=== PATIENT | female | born 1985 | race Asian ===

== ENCOUNTER → 2016-06-10 | Outpatient (CLI) | payer BC ==
[~2016-06-10] MED LIST: IBUP-232 PO; PREN0.01 PO; SENN1TAB PO
== END ==
LOC: HPND 09:24
PROVIDERS: ATTEND Obstetrics & Gynecology
DX: O36.5930 Maternal care for other known or suspected poor fetal growth, third trimester, not applicable or unspecified (principal)
CPT/HCPCS: 76816

== ENCOUNTER 2016-07-17 10:08 | Inpatient (IN) | payer BC ==
[2016-07-17] VITALS (14 sets, daily range): BP systolic 98–109; BP diastolic 61–75; PULSE 66–92; RESP 16–20; TEMP 97.8–98.8
[~2016-07-17 10:08] MED LIST changes: -IBUP-232 PO; -SENN1TAB PO
[2016-07-17] MEDS: LACTATED RINGER'S 1000 ML INJ 1,000 ML IV SCH (10:55)
[2016-07-17] MEDS ORDERED: LACTATED RINGER'S 1000 ML INJ 1,000 ML IV PRN (10:55)
[2016-07-17] MEDS ORDERED: LIDOCAINE HCL 1% 50 ML VIAL I-DERMAL PRN (11:00)
[2016-07-17] MEDS ORDERED: OXYTOCIN 30 UNITS-500ML PREMIX 500 ML IV ONE (11:00)
[2016-07-17] MEDS ORDERED: PENICILLIN G POTASSIUM INJ 5,000,000 UNITS in SODIUM CHLORIDE 0.9% INJ 100 ML IV ONE (11:00)
[2016-07-17] MEDS ORDERED: SODIUM CHLORID 0.9% 500 ML INJ 500 ML IV PRN (11:00)
[2016-07-17] MEDS ORDERED: MINERAL OIL 10 ML VIAL TOPICAL PRN (11:00)
[2016-07-17] MEDS ORDERED: LIDOCAINE HCL 1% 50 ML VIAL INFIL PRN (11:00)
[2016-07-17] MEDS ORDERED: CITRIC ACID-SODIUM CITRATE LIQ 30 ML UDC PO SCH (11:00)
--- NOTE | 2016-07-17 11:09 | PD ---
HPI Chief Complaint Labor, ruptured membranes Date Seen: Jul 17, 2016 Time Seen: 10:45 Travel History International Travel<30 Days: No Contact w/Intl Traveler<30Days: No Known Affected Area: No History of Present Illness HPI 30-year-old 2 para 1 at 40-6/7 weeks gestation who reports rupture of membranes at approximately 3 AM. She has been having gradually increasing contraction activity since that time. She denies any bleeding. She reports good movement. Para: 1 : 2 History Past Medical History Medical History: Denies Significant Hx Past Surgical History Narrative Surgical Partial oophorectomy for torsion Family History Family History: Negative Social History Alcohol Use: No Tobacco Use: No Substance Abuse: No Allergies-Medications (Allergen,Severity, Reaction): Coded Allergies: No Known Allergies (Unverified , 04/25/13) Home Meds Reported Medications Multivit/Min/Fol Ac/Iron/Pren ( Vit ( Plus)) Tab1 Tab PO DAILY 04/25/13 Review of Systems Except as stated in HPI: all other systems reviewed are Neg Physical Exam Narrative GENERAL: Well-nourished, well-developed patient. SKIN: Warm and dry. HEAD: Normocephalic and atraumatic. EYES: No scleral icterus. No injection or drainage. ENT: No nasal drainage noted. Mucous membranes pink. Airway patent. NECK: Supple, trachea midline. No JVD. CARDIOVASCULAR: Regular rate and rhythm without murmurs, gallops, or rubs. RESPIRATORY: Breath sounds equal bilaterally. No accessory muscle use. ABDOMEN/GI: Abdomen soft, non-tender, bowel sounds present, no rebound, no guarding Gravid to [-] weeks size Fundal Height: [-] GENITOURINARY: External Genitalia: intact and normal in appearance BUS glands: [-] Cervix: [-] Dilatation: [4-] Effacement: [60-] Station: [-1-] Presentation: [-] Membranes: [ruptured] Uterine Contractions: [irreg-] FHT's: Category: [1-] Baseline: [-] Reactive: [-] Variability: [-avg] Decels: [-] EXTREMITIES: No cyanosis or edema. BACK: Nontender without obvious deformity. No CVA tenderness. NEUROLOGICAL: Awake and alert. Motor and sensory grossly within normal limits. Five out of 5 muscle strength in all muscle groups. Normal speech. Data Data Vital Signs Reviewed: Yes Orders Ob (2e) Additional Admit Info (07/17/16 10:55) Admit To Inpatient (07/17/16 ) Code Status (07/17/16 10:55) Vital Signs (Adult) .Per protocol (07/17/16 10:55) Activity Oob Ad Cherelle (07/17/16 10:55) Heart (07/17/16 10:55) Amnioinfusion (07/17/16 10:55) Urinary Catheter Management .ONCE (07/17/16 10:55) Lactated Ringer's 1000 Ml Inj (Lr 1000 M (07/17/16 10:55) Lactated Ringer's 1000 Ml Inj (Lr 1000 M (07/17/16 10:55) Sodium Chlorid 0.9% 500 Ml Inj (Ns 500 M (07/17/16 11:00) Sodium Chlor 0.9% 1000 Ml Inj (Ns 1000 M (07/17/16 11:15) Lidocaine 1% Inj (50 Ml) (Xylocaine 1% I (07/17/16 11:00) Citric Acid-Sodium Citrate Liq (Bicitra (07/17/16 11:00) Fentanyl Inj (Fentanyl Inj) (07/17/16 11:00) Fentanyl Inj (Fentanyl Inj) (07/17/16 11:00) Penicillin G Potassium Inj (Pfizerpen-G (07/17/16 11:00) Penicillin G Potassium Inj (Pfizerpen-G (07/17/16 15:00) Complete Blood Count With Diff (07/17/16 10:55) Hold Clot (07/17/16 10:55) Abo/Rh Blood Type (07/17/16 10:55) Resp Oxygen Non Rebreathe Mask (07/17/16 ) ^ Epidural / Intrathecal Infus (07/17/16 10:55) Oxytocin 30 Units-500ml Premix (Pitocin (07/17/16 11:00) Lidocaine 1% Inj (50 Ml) (Xylocaine 1% I (07/17/16 11:00) Light Mineral Oil (Muri-Lube Oil) (07/17/16 11:00) Inpatient Certification (07/17/16 ) MDM Medical Record Reviewed: Yes Narrative Course / MDM Assessment: 30-year-old at 40-6/7 weeks gestation with ruptured membranes and evidence of early labor, she is group B strep positive Plan: Admit for labor management. GBS prophylaxis Jason Carr MD Jul 17, 2016 11:09
[2016-07-17] MEDS ORDERED: SODIUM CHLOR 0.9% 1000 ML INJ 1,000 ML IV PRN (11:15)
--- NOTE | 2016-07-17 11:15 | HHI.HP ---
History & Physical H&P OB ED Note (Detail) Patient Name: Lona Dobson Unit Number: [id number] Date of : 1985 Patient Status: Registered Emergency Room Attending Doctor: Jason Carr MD HPI HPI Chief Complaint Labor, ruptured membranes Date Seen: Jul 17, 2016 Time Seen: 10:45 Travel History International Travel<30 Days: No Contact w/Intl Traveler<30Days: No Known Affected Area: No History of Present Illness HPI 30-year-old 2 para 1 at 40-6/7 weeks gestation who reports rupture of membranes at approximately 3 AM. She has been having gradually increasing contraction activity since that time. She denies any bleeding. She reports good movement. Para: 1 : 2 History (Limited) History Past Medical History Medical History: Denies Significant Hx Obstetrical Hx: one prior VD 8#[address] Sepulveda Past Surgical History Narrative Surgical Partial oophorectomy for torsion Family History Family History: Negative Social History Alcohol Use: No Tobacco Use: No Substance Abuse: No Allergies-Medications Allergies-Medications (Allergen,Severity, Reaction): Coded Allergies: No Known Allergies (Unverified , 04/25/13) Home Meds Reported Medications Multivit/Min/Fol Ac/Iron/Pren ( Vit ( Plus)) Tab1 Tab PO DAILY 04/25/13 ROS Review of Systems Except as stated in HPI: all other systems reviewed are Neg Physical Exam Physical Exam Narrative GENERAL: Well-nourished, well-developed patient. SKIN: Warm and dry. HEAD: Normocephalic and atraumatic. EYES: No scleral icterus. No injection or drainage. ENT: No nasal drainage noted. Mucous membranes pink. Airway patent. NECK: Supple, trachea midline. No JVD. CARDIOVASCULAR: Regular rate and rhythm without murmurs, gallops, or rubs. RESPIRATORY: Breath sounds equal bilaterally. No accessory muscle use. ABDOMEN/GI: Abdomen soft, non-tender, bowel sounds present, no rebound, no guarding Gravid to [-] weeks size Fundal Height: [-] GENITOURINARY: External Genitalia: intact and normal in appearance BUS glands: [-] Cervix: [-] Dilatation: [4-] Effacement: [60-] Station: [-1-] Presentation: [-] Membranes: [ruptured] Uterine Contractions: [irreg-] FHT's: Category: [1-] Baseline: [-] Reactive: [-] Variability: [-avg] Decels: [-] EXTREMITIES: No cyanosis or edema. BACK: Nontender without obvious deformity. No CVA tenderness. NEUROLOGICAL: Awake and alert. Motor and sensory grossly within normal limits. Five out of 5 muscle strength in all muscle groups. Normal speech. Data Data Data Vital Signs Reviewed: Yes Orders Ob (2e) Additional Admit Info (07/17/16 10:55) Admit To Inpatient (07/17/16 ) Code Status (07/17/16 10:55) Vital Signs (Adult) .Per protocol (07/17/16 10:55) Activity Oob Ad Cherelle (07/17/16 10:55) Heart (07/17/16 10:55) Amnioinfusion (07/17/16 10:55) Urinary Catheter Management .ONCE (07/17/16 10:55) Lactated Ringer's 1000 Ml Inj (Lr 1000 M (07/17/16 10:55) Lactated Ringer's 1000 Ml Inj (Lr 1000 M (07/17/16 10:55) Sodium Chlorid 0.9% 500 Ml Inj (Ns 500 M (07/17/16 11:00) Sodium Chlor 0.9% 1000 Ml Inj (Ns 1000 M (07/17/16 11:15) Lidocaine 1% Inj (50 Ml) (Xylocaine 1% I (07/17/16 11:00) Citric Acid-Sodium Citrate Liq (Bicitra (07/17/16 11:00) Fentanyl Inj (Fentanyl Inj) (07/17/16 11:00) Fentanyl Inj (Fentanyl Inj) (07/17/16 11:00) Penicillin G Potassium Inj (Pfizerpen-G (07/17/16 11:00) Penicillin G Potassium Inj (Pfizerpen-G (07/17/16 15:00) Complete Blood Count With Diff (07/17/16 10:55) Hold Clot (07/17/16 10:55) Abo/Rh Blood Type (07/17/16 10:55) Resp Oxygen Non Rebreathe Mask (07/17/16 ) ^ Epidural / Intrathecal Infus (07/17/16 10:55) Oxytocin 30 Units-500ml Premix (Pitocin (07/17/16 11:00) Lidocaine 1% Inj (50 Ml) (Xylocaine 1% I (07/17/16 11:00) Light Mineral Oil (Muri-Lube Oil) (07/17/16 11:00) Inpatient Certification (07/17/16 ) MDM MDM Medical Record Reviewed: Yes Narrative Course / MDM Assessment: 30-year-old at 40-6/7 weeks gestation with ruptured membranes and evidence of early labor, she is group B strep positive Plan: Admit for labor management. GBS prophylaxis Jason Carr MD Jul 17, 2016 11:09 Jason Carr MD Jul 17, 2016 11:15
[2016-07-17 11:29] LABS: AUTOMATED NEUTROPHIL # 7.5 TH/MM3 (1.8-7.7); BASOPHIL % 0.2 % (0.0-2.0); EOSINOPHIL # 0.3 TH/MM3 (0-0.4); EOSINOPHIL % 2.7 % (0.0-4.0); HEMATOCRIT 33.5 % (35.0-46.0); LYMPH % 12.4 % (9.0-44.0); LYMPHOCYTE # 1.2 TH/MM3 (1.0-4.8); MEAN CELL VOLUME 72.5 FL (80.0-100.0); MEAN CORPUSCULAR HEMOGLOBIN 23.3 PG (27.0-34.0); MEAN CORPUSCULAR HGB CONC 32.1 % (32.0-36.0); MONO % 6.8 % (0.0-8.0); NEUT % 77.9 % (16.0-70.0); PLATELET COUNT 280 TH/MM3 (150-450); RED BLOOD COUNT 4.62 MIL/MM3 (4.00-5.30); RED CELL DISTRIBUTION WIDTH 15.5 % (11.6-17.2); WHITE BLOOD COUNT 9.7 TH/MM3 (4.0-11.0)
[2016-07-17 11:30] LABS: HEMO FLAGS AUTO DIFF
[2016-07-17] MEDS ORDERED: OXYTOCIN 30 UNITS-500ML PREMIX 500 ML IV SCH (12:00)
[2016-07-17 12:04] LABS: SCAN/DIFF AUTO DIFF CONFIRMED
[2016-07-17 12:05] LABS: ACANTHOCYTES OCC (NORMAL)
[2016-07-17] MEDS: PENICILLIN G POTASSIUM INJ 2,500,000 UNITS in SODIUM CHLORIDE 0.9% INJ 100 ML IV SCH (15:00)
--- NOTE | 2016-07-17 15:19 | PD.OB.DELI ---
Anesthesia: None Episiotomy: None Vaginal Delivery: Normal Presentation: Occiput anterior Nuchal Cord: None Shoulder Dystocia: Lala maneuver done Infant: Female One Minute : 8 Five Minute : 9 Placenta: Spontaneous delivery, Intact, 3 vessel cord Laceration: Vaginal laceration, 1 deg Repair: Jason Wilson MD Jul 17, 2016 15:19
[2016-07-17] MEDS ORDERED: BENZOCAINE 20% TOPICAL SPRAY 60 ML CAN TOPICAL PRN (15:30)
[2016-07-17] MEDS ORDERED: ACETAMINOPHEN 325 MG TAB PO PRN (15:30)
[2016-07-17] MEDS ORDERED: ONDANSETRON ODT 4 MG TAB PO PRN (15:30)
[2016-07-17] MEDS ORDERED: SODIUM CHLORIDE 0.9% FLUSH 10 ML FLUSH IV FLUSH PRN (15:30)
[2016-07-17] MEDS ORDERED: ZOLPIDEM TARTRATE 5 MG TAB PO PRN (15:30)
[2016-07-17] MEDS ORDERED: OXYTOCIN 10 UNIT/ML AMP XX PRN (15:30)
[2016-07-17] MEDS ORDERED: ALUMINUM/MAGNESIUM/SIMETH 30 ML CUP PO PRN (15:30)
[2016-07-17] MEDS ORDERED: DOCUSATE SODIUM 50 MG/SENNA 8.6 MG TAB PO PRN (15:30)
[2016-07-17] MEDS ORDERED: MEASLES, MUMPS, RUBELLA VACCINE 0.5 ML VIAL SQ ONE (16:00)
[2016-07-17] MEDS ORDERED: DIPHTH/TETANUS/ACEL PERTUSSIS (BOOSTER) 0.5 ML VIAL/PFS IM ONE (16:00)
[2016-07-17] MEDS: WITCH HAZEL 50%/GLYCERIN 12.5% 40 PAD JAR TOPICAL PRN (16:21)
[2016-07-17] MEDS: IBUPROFEN 600 MG TAB PO PRN (16:21)
[2016-07-18] MEDS: PENICILLIN G POTASSIUM INJ 2,500,000 UNITS in SODIUM CHLORIDE 0.9% INJ 100 ML IV SCH ×2 (07:00→15:00)
[2016-07-18] MEDS: IBUPROFEN 600 MG TAB PO PRN ×2 (07:17→19:06)
--- NOTE | 2016-07-18 07:40 | HHI.OB ---
Subjective Post Day: 1 Remarks doing well, inquiring if she can go home today Objective Vitals/I&O Vital Signs Date Time Temp Pulse Resp B/P Pulse Ox O2 Delivery O2 Flow Rate FiO2 07/17/16 20:00 79 18 107/62 07/17/16 20:00 98.8 07/17/16 16:57 72 109/65 07/17/16 15:45 98.1 07/17/16 15:45 72 98/61 07/17/16 15:32 82 103/68 07/17/16 15:30 18 07/17/16 15:23 70 107/64 07/17/16 15:15 20 07/17/16 15:04 92 109/73 07/17/16 13:15 98.3 16 07/17/16 13:11 71 104/73 07/17/16 12:28 71 105/75 07/17/16 11:30 97.8 07/17/16 11:26 16 07/17/16 11:25 66 105/70 Objective Remarks GENERAL: Well-nourished, well-developed patient. CARDIOVASCULAR: Regular rate and rhythm without murmurs, gallops, or rubs. RESPIRATORY: Breath sounds equal bilaterally. No accessory muscle use. ABDOMEN/GI: Abdomen soft, non-tender. Fundus: Firm, non-tender at umbilicus. GENITOURINARY: Light to moderate bleeding. EXTREMITIES: No cyanosis or edema, non-tender, without signs of DVT. Medications and IVs Current Medications Medications (Trade) Dose Ordered Sig/[facility] Route Start Time Stop Time Status Last Admin Lactated Ringer's 1,000 ml @ 125 mls/hr Q8H IV 07/17/16 10:55 07/17/16 10:55 Lactated Ringer's 1,000 ml @ 3,000 mls/hr Q20M PRN IV 07/17/16 10:55 Sodium Chloride 500 ml @ 1,000 mls/hr ONCE PRN IV 07/17/16 11:00 07/19/16 10:59 (NS 1000 ml Inj) 1,000 ml @ 100 mls/hr Q10H PRN IV 07/17/16 11:15 (fentaNYL INJ) 50 mcg Q1H PRN IV PUSH 07/17/16 11:00 Fentanyl Citrate 100 mcg 100 mcg Q1H PRN IV PUSH 07/17/16 11:00 07/17/16 14:25 (Pfizerpen-G Inj/ NS Inj) 100 ml @ 200 mls/hr Q4H IV 07/17/16 15:00 Mineral Oil 10 ml 10 ml UNSCH PRN TOPICAL 07/17/16 11:00 (Pitocin 30 Units-NS 500 ml Premix) 500 ml @ 0 mls/hr TITRATE IV 07/17/16 12:00 07/17/16 12:21 (NS Flush) 2 ml BID IV FLUSH 07/17/16 21:00 (NS Flush) 2 ml UNSCH PRN IV FLUSH 07/17/16 15:30 (Tylenol) 650 mg Q4H PRN PO 07/17/16 15:30 (Motrin) 600 mg Q6H PRN PO 07/17/16 15:30 07/18/16 07:17 (Americaine 20% Top Spr) 1 spray Q4H PRN TOPICAL 07/17/16 15:30 07/17/16 16:20 (Tucks Pads) 1 applic QID PRN TOPICAL 07/17/16 15:30 07/17/16 16:21 (Leah-Colace) 2 tab Q12H PRN PO 07/17/16 15:30 (Ambien) 5 mg HS PRN PO 07/17/16 15:30 (Mag-Al Plus Susp Liq) 15 ml Q8H PRN PO 07/17/16 15:30 (Zofran Odt) 4 mg Q6H PRN PO 07/17/16 15:30 Assessment/Plan Problem List: (1) (spontaneous vaginal delivery) Assessment and Plan PPD 1- cont routine care dispo- home ppd 1 or 2 if baby ready Rizwana Chaves MD Jul 18, 2016 07:40
[2016-07-18 07:55] VITALS: BP 107/69; PULSE 71; RESP 16; TEMP 98.1
[2016-07-18] MEDS: SODIUM CHLORIDE 0.9% FLUSH 10 ML FLUSH IV FLUSH SCH (09:00)
--- NOTE | 2016-07-18 10:01 | MH ---
cc: MD SUSAN,LAURA Schafer DATE OF ADMISSION: 07/17/2016 HISTORY OF PRESENT ILLNESS: She is 30 years old, 2, para 1-0-0-1 intrauterine at 41 weeks post dates. care has been with [facility]. PAST OB HISTORY: Past OB history is significant for one vaginal delivery at 39 weeks, 8 pounds 9 ounces. GYNECOLOGIC HISTORY: 1. Partial removal of the left ovary. 2. History of a small fundal fibroid. PAST MEDICAL HISTORY: She denies hypertension, diabetes or asthma. SOCIAL HISTORY: She denies toxic habits. MEDICATIONS: She takes vitamins. ALLERGIES: NO KNOWN DRUG ALLERGIES. PHYSICAL EXAMINATION: VITAL SIGNS: Her vital signs are stable. Blood pressure is 120/70. WEIGHT: She is 147 pounds. HEAD, HEART, CHEST, LUNGS: Within normal limits. ABDOMEN: Abdomen soft and nontender. Gravid. PELVIC: Cervical exam is 2 cm dilated 50% effaced minus 1 station, vertex presentation. ASSESSMENT AND PLAN: She is 30-year-old 2, para 1 intrauterine at 41 weeks, group B strep positive post dates for Cervidil induction on the evening of 07/18/2016. She has been counseled and her questions have been answered. MD BRIANNA Steven/JEAN CLAUDE /4:05 PM /10:02 AM
[2016-07-18] MEDS: LACTATED RINGER'S 1000 ML INJ 1,000 ML IV SCH (10:42)
[2016-07-18 19:30] VITALS: BP 104/68; PULSE 77; RESP 16; TEMP 98.3
[2016-07-19] MEDS: WITCH HAZEL 50%/GLYCERIN 12.5% 40 PAD JAR TOPICAL PRN (06:13)
[2016-07-19 07:38] VITALS: BP 104/65; PULSE 78; RESP 14; TEMP 98.6
[2016-07-19] MEDS: SODIUM CHLORIDE 0.9% FLUSH 10 ML FLUSH IV FLUSH SCH (09:00)
--- NOTE | 2016-07-19 09:07 | HHI.OB ---
Subjective Post Day: 2 Remarks s/p Objective Vitals/I&O Vital Signs Date Time Temp Pulse Resp B/P Pulse Ox O2 Delivery O2 Flow Rate FiO2 07/18/16 19:30 98.3 16 07/18/16 19:30 77 104/68 Objective Remarks GENERAL: Well-nourished, well-developed patient. CARDIOVASCULAR: Regular rate and rhythm without murmurs, gallops, or rubs. RESPIRATORY: Breath sounds equal bilaterally. No accessory muscle use. ABDOMEN/GI: Abdomen soft, non-tender. Fundus: Firm, non-tender at umbilicus. GENITOURINARY: Light bleeding. EXTREMITIES: No cyanosis or edema, non-tender, without signs of DVT. Medications and IVs Current Medications Medications (Trade) Dose Ordered Sig/[facility] Route Start Time Stop Time Status Last Admin Lactated Ringer's 1,000 ml @ 125 mls/hr Q8H IV 07/17/16 10:55 07/17/16 10:55 Lactated Ringer's 1,000 ml @ 3,000 mls/hr Q20M PRN IV 07/17/16 10:55 Sodium Chloride 500 ml @ 1,000 mls/hr ONCE PRN IV 07/17/16 11:00 07/19/16 10:59 (NS 1000 ml Inj) 1,000 ml @ 100 mls/hr Q10H PRN IV 07/17/16 11:15 (fentaNYL INJ) 50 mcg Q1H PRN IV PUSH 07/17/16 11:00 Fentanyl Citrate 100 mcg 100 mcg Q1H PRN IV PUSH 07/17/16 11:00 07/17/16 14:25 (Pfizerpen-G Inj/ NS Inj) 100 ml @ 200 mls/hr Q4H IV 07/17/16 15:00 Mineral Oil 10 ml 10 ml UNSCH PRN TOPICAL 07/17/16 11:00 (Pitocin 30 Units-NS 500 ml Premix) 500 ml @ 0 mls/hr TITRATE IV 07/17/16 12:00 07/17/16 12:21 (NS Flush) 2 ml BID IV FLUSH 07/17/16 21:00 (NS Flush) 2 ml UNSCH PRN IV FLUSH 07/17/16 15:30 (Tylenol) 650 mg Q4H PRN PO 07/17/16 15:30 (Motrin) 600 mg Q6H PRN PO 07/17/16 15:30 07/18/16 19:06 (Americaine 20% Top Spr) 1 spray Q4H PRN TOPICAL 07/17/16 15:30 07/17/16 16:20 (Tucks Pads) 1 applic QID PRN TOPICAL 07/17/16 15:30 07/19/16 06:13 (Leah-Colace) 2 tab Q12H PRN PO 07/17/16 15:30 07/19/16 07:58 (Ambien) 5 mg HS PRN PO 07/17/16 15:30 (Mag-Al Plus Susp Liq) 15 ml Q8H PRN PO 07/17/16 15:30 (Zofran Odt) 4 mg Q6H PRN PO 07/17/16 15:30 Assessment/Plan Problem List: (1) (spontaneous vaginal delivery) Assessment and Plan PPD 2 - cont routine care d/c to home today Discharge Planning routine today Esthela Mcdaniels MD Jul 19, 2016 09:07
[2016-07-19] MEDS ORDERED: SENN1TAB PO (09:08)
[2016-07-19] MEDS ORDERED: IBUP-232 PO (09:08)
--- NOTE | 2016-07-19 09:09 | HHI.DCPOC ---
Discharge Care Plan Diagnosis: (1) (spontaneous vaginal delivery) Your Health Problems Are: Vaginal delivery Report Symptoms to Your Doctor -Temperate above 100.5 degrees -Redness, of incision or excessive or foul smelling drainage -Unusual pain or calf pain -Increased vaginal bleeding -Painful or difficulty urinating -Feelings of extreme sadness or anxiety after 2 weeks Goals to Promote Your Health * To prevent worsening of your condition and complications * To maintain your health at the optimal level Directions to Meet Your Goals Take your medications as prescribed Follow your dietary instruction Follow activity as directed Ensure plenty of rest for recovery Drink fluids for hydration Keep your appointments as scheduled Take your immunizations and boosters as scheduled If your symptoms worsen call your PCP, if no PCP go to Urgent Care Center or Emergency Room Smoking is Dangerous to Your Health. Avoid second hand smoke Call the 24-hour crisis hotline for domestic abuse at Esthela Mcdaniels MD Jul 19, 2016 09:09
== END 2016-07-19 13:58 | disposition home or self-care (01) | DRG 775 ==
LOC: HOBED 10:08 → H2EB 10:56 → H1EA 18:52
PROVIDERS: ADMIT Obstetrics & Gynecology; ATTEND Obstetrics & Gynecology
PROC: 10E0XZZ Delivery of Products of Conception, External Approach (ICD-10-PCS; principal; 2016-07-17)
PROC: 0HQ9XZZ Repair Perineum Skin, External Approach (ICD-10-PCS; 2016-07-17)
DX: O66.0 Obstructed labor due to shoulder dystocia (principal); O71.4 Obstetric high vaginal laceration alone; O99.824 Streptococcus B carrier state complicating childbirth; Z3A.40 40 weeks gestation of pregnancy; Z37.0 Single live birth
CPT/HCPCS: 84112; 85025; 86900; 86901; 90715; 99285; J2540; J2590; J3010; J7120